=== PATIENT | male | born 1990 | race Two or more races ===

== ENCOUNTER 2018-06-05 03:17 | Emergency (ER) | payer SELFPAY ==
[~2018-06-05] VITALS: Ht 177.8 cm; Wt 93.0 kg
[2018-06-05 03:35] VITALS: BP 134/70
--- NOTE | 2018-06-05 03:35 | NUR ---
ED Nurse Note: pt came to ed from home c/o bilateral eye pain. 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
[2018-06-05] MEDS ORDERED: HYDROCODON-ACE1 EA15 ORAL (03:51)
[2018-06-05] MEDS ORDERED: POLYTRIM OP SOL10 ML BOTH EYES (03:51)
--- NOTE | 2018-06-05 03:52 | Emergency Room Report ---
History of Present Illness General Chief Complaint: Eye Problems Source: Patient, Family Member Present Illness HPI Is a 27-year-old male with no past mental history. He presents with chief complaint of bilateral eye pain. 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 Did not wear any protection. Now presents with severe pain. Unable to open the eyes. Tearing and painful. Foreign body sensation. Pain is 9 out of 10. Light makes it worse. Opening his eyes makes it worse. No other injury. Allergies: Coded Allergies: No Known Allergies (Unverified , 06/05/18) Patient History Past Medical History: none, see triage record, old chart reviewed Past Surgical History: none Pertinent Family History: none Social History: Denies: smoking Immunizations: other Reviewed Nursing Documentation: PMH: Agreed; PSxH: Agreed Nursing Documentation-PMH Past Medical History: No Stated History Review of Systems Eye: Reports: eye pain; Denies: blurred vision ENT: Denies: ear pain, nose congestion, throat swelling Respiratory: Denies: cough, shortness of breath Cardiovascular: Denies: chest pain, palpitations Gastrointestinal: Denies: abdominal pain, diarrhea, nausea, vomiting Musculoskeletal: Denies: back pain, joint pain Skin: Denies: rash Neurological: Denies: headache, numbness Endocrine: Denies: increased thirst, increased urine Hematologic/Lymphatic: Denies: easy bruising All Other Systems: negative except mentioned in HPI Physical Exam Vital Signs Date Time Temp Pulse Resp B/P (MAP) Pulse Ox O2 Delivery O2 Flow Rate FiO2 06/05/18 03:28 98.4 54 16 134/70 99 Room Air vitals normal Sp02 EP Interpretation: reviewed, normal General Appearance: well appearing, no apparent distress, alert Head: normocephalic, atraumatic Eyes: bilateral eye PERRL, bilateral eye EOMI, bilateral eye other - Conjunctiva injected. No Nile sign. No foreign body seen. ENT: hearing grossly normal, normal pharynx Neck: full range of motion, supple, no meningismus Respiratory: chest non-tender, lungs clear, normal breath sounds Cardiovascular #1: regular rate, rhythm, no murmur Gastrointestinal: normal bowel sounds, non tender, no mass, no organomegaly, no bruit, non-distended Musculoskeletal: back normal, gait/station normal, normal range of motion Psychiatric: mood/affect normal Skin: warm/dry Medical Decision Making Diagnostic Impression: Primary Impression: Photokeratitis of both eyes ER Course Patient with a photokeratitis due to welding without protection. No foreign body. No globe rupture. We'll discharge home. Last Vital Signs Date Time Temp Pulse Resp B/P (MAP) Pulse Ox O2 Delivery O2 Flow Rate FiO2 06/05/18 03:35 98.4 54 16 134/70 99 Room Air Status: improved Disposition: HOME, SELF-CARE Condition: Stable Scripts Polymyxin/Trimethoprim (Polytrim Eye Drops) 10 Ml Drops 2 DROP BOTH EYES Q4H, #10 ML Prov: Abdon Medina MD 06/05/18 Hydrocodone/Acetaminophen 5-325* (HYDROCODONE/ACETAMINOPHEN 5-325*) 1 Each Tablet 1 TAB ORAL Q6H PRN for For Pain, #15 TAB 0 Refills Prov: Abdon Medina MD 06/05/18 Additional Instructions: Follow-up with eye doctor within 2 days. Return if symptom worsen. Wear eye protection. Abdon Medina MD Jun 05, 2018 03:52
[2018-06-05] MEDS ORDERED: HYDROcodone/Acetamin 5/325 tab ORAL ONE (04:00)
[2018-06-05 04:01] VITALS: BP 134/70
--- NOTE | 2018-06-05 04:01 | NUR ---
ER DISCHARGE NOTE: Patient is cleared to be discharged per ERMD, pt is aox4, on room air, with stable vital signs. pt was given dc and prescription instructions, pt was able to verbalize understanding, pt id band removed. pt is able to ambulate with steady gait. pt took all belongings. pts will drive him home
== END 2018-06-05 04:01 | disposition home or self-care (01) ==
LOC: EMR 03:49
DX: H16.133 Photokeratitis, bilateral (principal)
CPT/HCPCS: 99282